=== PATIENT | male | born 1985 | race Caucasian/White ===

== ENCOUNTER 2018-04-17 12:48 | Emergency (ER) | payer OTHER ==
[~2018-04-17] VITALS: Ht 193 cm; Wt 74.8 kg
[~2018-04-17 12:48] MED LIST: ACET500; ALBU90OI INH; AMOX500 PO; ATOM40 PO; Bactrim Ds Tab1 EACH PO; CEPH500 PO; CRUTCH4 USE; DOCU100 PO; HYDACE5 PO; HYDGUAL120 PO; Naprosyn500 MG PO; Norco 5-325 Ta1 EACH PO; OXYACE5T PO; PRED20 PO; RANI150 PO; RXHYDACE PO; SULTRIDS PO; TRAM50 PO; Veetids 500500 MG PO
[2018-04-17] MEDS ORDERED: Vitamin B Comple1 EA (13:11)
[2018-04-17] MEDS ORDERED: Vitamin C100 MG (13:11)
[2018-04-17] MEDS ORDERED: ERGO400 (13:12)
[2018-04-17] MEDS ORDERED: Omeprazole20 M1 (13:12)
[2018-04-17] MEDS ORDERED: Hair, Skin & N1 EACH (13:12)
[2018-04-17] MEDS ORDERED: Amoxicillin500 MG PO (13:26)
== END 2018-04-17 13:33 | disposition home or self-care (01) ==
LOC: ER 12:48
DX: K04.7 Periapical abscess without sinus (principal); Z88.8 Allergy status to other drugs, medicaments and biological substances; Z88.1 Allergy status to other antibiotic agents; Z79.899 Other long term (current) drug therapy; Z79.2 Long term (current) use of antibiotics; F17.200 Nicotine dependence, unspecified, uncomplicated
CPT/HCPCS: 99282

== ENCOUNTER 2019-10-02 05:11 | Emergency (ER) | payer OTHER ==
[~2019-10-02] VITALS: Ht 185.4 cm; Wt 81.7 kg
[~2019-10-02 05:11] MED LIST changes: +Amoxicillin500 MG PO; +ERGO400; +GABA300 PO; +Hair, Skin & N1 EACH; +Omeprazole20 M1; +PENVK500 PO; +Vitamin B Comple1 EA; +Vitamin C100 MG
[2019-10-02] MEDS ORDERED: ALBU90OI INH (06:06)
[2019-10-02] MEDS ORDERED: Prednisone20 MG PO (06:06)
== END 2019-10-02 06:19 | disposition home or self-care (01) ==
LOC: ER 05:11
DX: J06.9 Acute upper respiratory infection, unspecified (principal); F31.9 Bipolar disorder, unspecified; F17.210 Nicotine dependence, cigarettes, uncomplicated; Z88.1 Allergy status to other antibiotic agents; Z79.899 Other long term (current) drug therapy
CPT/HCPCS: 71046; 99283-25; J1100

== ENCOUNTER 2020-06-27 19:05 | Emergency (ER) | payer OTHER ==
[~2020-06-27] VITALS: Ht 193 cm; Wt 82.5 kg
[~2020-06-27 19:05] MED LIST changes: +Prednisone20 MG PO
[2020-06-27] MEDS ORDERED: OLAN5 PO (20:28)
[2020-06-27] MEDS ORDERED: IBUP800 PO (20:46)
[2020-06-27] MEDS ORDERED: Norco 5-325 Ta1 EACH PO (20:46)
== END 2020-06-27 22:07 | disposition home or self-care (01) ==
LOC: ER 19:05
DX: S42.034A Nondisplaced fracture of lateral end of right clavicle, initial encounter for closed fracture (principal); F31.9 Bipolar disorder, unspecified; Z88.1 Allergy status to other antibiotic agents; Z79.52 Long term (current) use of systemic steroids; Z79.899 Other long term (current) drug therapy; V00.131A Fall from skateboard, initial encounter; Y93.51 Activity, roller skating (inline) and skateboarding
CPT/HCPCS: 71101; 72040; 73030; 99283-25; A9270-GY

== ENCOUNTER 2020-10-23 22:13 | Emergency (ER) | payer OTHER ==
[~2020-10-23] VITALS: Ht 193 cm; Wt 77.1 kg
[~2020-10-23 22:13] MED LIST changes: +IBUP800 PO; +OLAN5 PO
== END 2020-10-24 01:30 | disposition left against medical advice (07) ==
LOC: ER 22:13
DX: Z53.21 Procedure and treatment not carried out due to patient leaving prior to being seen by health care provider (principal)

== ENCOUNTER 2020-11-18 22:31 | Emergency (ER) | payer OTHER ==
[~2020-11-18] VITALS: Ht 190.5 cm; Wt 83.9 kg
[2020-11-18] MEDS ORDERED: Veetids 500500 MG PO (23:09)
[2021-04-18] MEDS ORDERED: CEPH500 PO (10:12)
== END 2020-11-18 23:16 | disposition home or self-care (01) ==
LOC: ER 22:31
DX: K04.7 Periapical abscess without sinus (principal); F17.210 Nicotine dependence, cigarettes, uncomplicated; Z88.1 Allergy status to other antibiotic agents; Z79.899 Other long term (current) drug therapy
CPT/HCPCS: 99283; A9270

== ENCOUNTER 2021-04-15 23:35 | Emergency (ER) | payer OTHER ==
[~2021-04-15] VITALS: Ht 190.5 cm; Wt 77.1 kg
[2021-04-16] MEDS ORDERED: AMOCLA875 PO (00:57)
[2021-04-16] MEDS ORDERED: HYDR1TAB94 PO (00:57)
[2021-04-18] MEDS ORDERED: CEPH500 PO (10:12)
== END 2021-04-16 05:19 | disposition home or self-care (01) ==
LOC: ER 23:35
DX: K04.7 Periapical abscess without sinus (principal); K02.9 Dental caries, unspecified; F17.210 Nicotine dependence, cigarettes, uncomplicated; Z88.1 Allergy status to other antibiotic agents; Z79.899 Other long term (current) drug therapy
CPT/HCPCS: 99282; A9270

== ENCOUNTER 2021-04-17 17:51 | Emergency (ER) | payer OTHER ==
[~2021-04-17] VITALS: Ht 193 cm; Wt 79.4 kg
[~2021-04-17 17:51] MED LIST changes: +AMOCLA875 PO; +HYDR1TAB94 PO
[2021-04-18] MEDS ORDERED: CEPH500 PO (10:12)
== END 2021-04-17 20:57 | disposition home or self-care (01) ==
LOC: ER 17:51
DX: S31.010A Laceration without foreign body of lower back and pelvis without penetration into retroperitoneum, initial encounter (principal); A88.1 Epidemic vertigo; F17.210 Nicotine dependence, cigarettes, uncomplicated; Z79.899 Other long term (current) drug therapy; Z88.1 Allergy status to other antibiotic agents; W09.1XXA Fall from playground swing, initial encounter
CPT/HCPCS: 12001; 72080; 73502; 99283-25; A9270

== ENCOUNTER 2022-02-17 18:41 | Emergency (ER) | payer OTHER ==
[~2022-02-17] VITALS: Ht 193 cm; Wt 75.8 kg
[2022-02-17] MEDS ORDERED: Veetids 500500 MG PO (20:09)
== END 2022-02-17 20:20 | disposition home or self-care (01) ==
LOC: ER 18:41
DX: K04.7 Periapical abscess without sinus (principal); Z88.1 Allergy status to other antibiotic agents; Z79.899 Other long term (current) drug therapy
CPT/HCPCS: 87081; 87430; 99282; A9270

== ENCOUNTER 2022-12-20 03:46 | Emergency (ER) | payer OTHER ==
[~2022-12-20] VITALS: Ht 193 cm; Wt 77.1 kg
[2022-12-20] MEDS ORDERED: ONDA4ODT MM (04:52)
== END 2022-12-20 05:33 | disposition home or self-care (01) ==
LOC: ER 03:46
DX: S92.511A Displaced fracture of proximal phalanx of right lesser toe(s), initial encounter for closed fracture (principal); S90.31XA Contusion of right foot, initial encounter; R06.2 Wheezing; F17.210 Nicotine dependence, cigarettes, uncomplicated; Z88.1 Allergy status to other antibiotic agents; Z88.8 Allergy status to other drugs, medicaments and biological substances
CPT/HCPCS: 28515; 73620; 94640; 94664; 99283-25; A9270

== ENCOUNTER 2022-12-23 14:27 | Emergency (ER) | payer OTHER ==
[~2022-12-23] VITALS: Ht 193 cm; Wt 80.3 kg
[~2022-12-23 14:27] MED LIST changes: +ONDA4ODT MM
[2022-12-23] MEDS ORDERED: AMOCLA875 PO (15:23)
== END 2022-12-23 15:26 | disposition home or self-care (01) ==
LOC: ER 14:27
DX: K04.7 Periapical abscess without sinus (principal); F17.210 Nicotine dependence, cigarettes, uncomplicated; Z88.1 Allergy status to other antibiotic agents; Z88.8 Allergy status to other drugs, medicaments and biological substances
CPT/HCPCS: 99282

== ENCOUNTER 2023-03-24 16:00 | Emergency (ER) | payer OTHER ==
[~2023-03-24] VITALS: Ht 190.5 cm; Wt 63.5 kg
[2023-03-24 16:15] VITALS: BP 133/70
[2023-03-24] MEDS ORDERED: HYDPAM50 PO (18:48)
== END 2023-03-24 18:57 | disposition home or self-care (01) ==
LOC: ER 16:00
DX: R45.1 Restlessness and agitation (principal); Z88.1 Allergy status to other antibiotic agents; F17.210 Nicotine dependence, cigarettes, uncomplicated
CPT/HCPCS: 99284

== ENCOUNTER 2023-10-02 05:41 | Emergency (ER) | payer OTHER ==
[~2023-10-02] VITALS: Ht 193 cm; Wt 77.1 kg
[~2023-10-02 05:41] MED LIST changes: +HYDPAM50 PO
[2023-10-02 05:55] VITALS: BP 131/90
[2023-10-02 06:39] LABS: Source, Urine Clean Catch
[2023-10-02 06:42] LABS: Appearance, Urine Clear (Clear); Bilirubin, Urine Neg (Neg); Blood, Urine 1+ (Neg); Color, Urine Yellow (P-Yellow); Glucose Qualitative, Urine Neg (Neg); Ketones, Urine 2+ (Neg); Leukocyte Esterase, Urine Neg (Neg); Nitrite, Urine Neg (Neg); Protein, Urine 1+ (Neg); Specific Gravity, Urine 1.015 (1.003-1.022); Urobilinogen, Urine 1+ (Normal)
[2023-10-02 06:47] LABS: BASOPHILS ABSOLUTE AUTO 0.13 K/mm3 (0.00-0.23); BASOPHILS PERCENT AUTO 1 % (0-2); EOSINOPHILS ABSOLUTE AUTO 0.04 K/mm3 (0.00-0.68); EOSINOPHILS PERCENT AUTO 0 % (0-6); Hematocrit 44.2 % (37.0-53.0); Hemoglobin 15.8 g/dL (13.5-17.5); IMMATURE GRAN ABSOLUTE AUTO 0.09 K/mm3 (0.00-0.10); IMMATURE GRAN PERCENT AUTO 0 % (0-1); LYMPHOCYTES PERCENT AUTO 11 % (21-46); MONOCYTES ABSOLUTE AUTO 1.26 K/mm3 (0.16-1.47); MONOCYTES PERCENT AUTO 6 % (4-13); Mean Corpuscular HGB 32.1 pg (26.0-34.0); Mean Corpuscular HGB Conc 35.7 g/dL (31.5-36.5); Mean Corpuscular Volume 90 fL (80-100); Mean Platelet Volume 10.9 fL (9.1-12.4); NEUTROPHILS ABSOLUTE AUTO 17.21 K/mm3 (1.96-9.15); NEUTROPHILS PERCENT AUTO 81 % (41-73); Platelet Count 262 K/mm3 (150-400); RDW Coefficient Variation 11.6 % (11.7-14.2); RDW Standard Deviation 37.9 fL (35.1-46.3); Red Blood Cell Count 4.92 M/mm3 (4.30-5.90); White Blood Cell Count 21.13 K/mm3 (4.00-11.30)
[2023-10-02 06:51] LABS: Bacteria Rare /hpf; Squamous Epithelial Cells Rare /hpf (Few); White Blood Cells, Urine 0-2 /hpf (0-5)
[2023-10-02 07:18] LABS: Albumin/Globulin Ratio 1.1 (0.8-1.8); Bilirubin, Direct 0.2 mg/dL (0.0-0.3); Bilirubin, Indirect 0.8 mg/dL (0.1-0.7); Bun/Creatinine Ratio 7.1 (12.0-20.0); Calcium, Blood 9.3 mg/dL (8.5-10.1); Creatinine, Blood 1.13 mg/dL (0.60-1.20); Globulin, Blood 3.8 g/dL (2.2-4.0); Potassium, Blood 3.9 mmol/L (3.5-5.5); Total Protein, Blood 7.8 g/dL (6.4-8.2)
[2023-10-02 07:53] LABS: Influenza A, PCR NEGATIVE (NEGATIVE); Influenza B, PCR NEGATIVE (NEGATIVE); Resp Syncytial Virus, PCR NEGATIVE (NEGATIVE); SARS-Cov-2 (COVID-19) PCR, MMC NEGATIVE (NEGATIVE)
[2023-10-02] MEDS ORDERED: ONDA4ODT MM (08:46)
== END 2023-10-02 09:17 | disposition home or self-care (01) ==
LOC: ER 05:41
PROVIDERS: Student in an Organized Health Care Education/Training Program
DX: B34.9 Viral infection, unspecified (principal); Z20.822 Contact with and (suspected) exposure to COVID-19; R31.9 Hematuria, unspecified; F31.9 Bipolar disorder, unspecified; F17.210 Nicotine dependence, cigarettes, uncomplicated; Z79.899 Other long term (current) drug therapy; Z88.1 Allergy status to other antibiotic agents
CPT/HCPCS: 0241U; 71046; 74177; 80048; 80076; 81001; 83690; 85025; 96361; 96374; 96375; 99284-25; J1885; J2405; J7030; Q9967

== ENCOUNTER 2024-08-01 00:13 | Emergency (ER) | payer OTHER ==
[~2024-08-01] VITALS: Ht 190.5 cm; Wt 81.7 kg
[2024-08-01 01:32] VITALS: BP 131/85
[2024-08-01] MEDS ORDERED: Acetaminophen 500 MG Tab PO ONE (02:20)
[2024-08-01] MEDS ORDERED: Clindamycin HCl 150 MG Cap PO ONE (02:20)
[2024-08-01] MEDS ORDERED: Ibuprofen 600 MG Tab PO ONE (02:20)
[2024-08-01] MEDS ORDERED: CLIN300 PO (02:25)
[2024-08-01] MEDS ORDERED: Lidocaine 2% Viscous Soln 100 ML BTL TOP ONE (02:50)
== END 2024-08-01 03:11 | disposition home or self-care (01) ==
LOC: ER 00:13
DX: K04.7 Periapical abscess without sinus (principal); F17.210 Nicotine dependence, cigarettes, uncomplicated; Z79.899 Other long term (current) drug therapy; Z88.1 Allergy status to other antibiotic agents
CPT/HCPCS: 96361; 96365; 96375; 96376; 99284-25; A9270

== ENCOUNTER 2025-05-25 23:21 | Emergency (ER) | payer OTHER ==
[~2025-05-25] VITALS: Ht 190.5 cm; Wt 77.1 kg
[~2025-05-25 23:21] MED LIST changes: +CLIN300 PO
[2025-05-25 23:36] VITALS: BP 122/85
[2025-05-26] MEDS ORDERED: Ketorolac Tromethamine 15mg Vial IM ONE (00:25)
[2025-05-26] MEDS ORDERED: AMOCLA875 PO (01:44)
[2025-05-26] MEDS ORDERED: IBUP600 PO (01:44)
== END 2025-05-26 01:48 | disposition home or self-care (01) ==
LOC: ER 23:21
DX: R51.9 Headache, unspecified (principal); R07.81 Pleurodynia; K02.9 Dental caries, unspecified; F17.210 Nicotine dependence, cigarettes, uncomplicated; Z88.1 Allergy status to other antibiotic agents; Z91.030 Bee allergy status
CPT/HCPCS: 99283; A9270; J1885